=== PATIENT | male | born 1960 | race Caucasian/White ===

== ENCOUNTER 2025-02-05 21:05 | Observation (INO) | payer OTHER ==
[2025-02-05] MEDS: ASPIRIN 81 MG PO STA (21:29)
[2025-02-05 21:35] LABS: Basophils # (A) 0.09 10*3/uL (0.00-0.10); Basophils % (A) 1.1 %; Eosinophils # (A) 0.18 10*3/uL (0.04-0.35); Eosinophils % (A) 2.2 %; HCT 45.5 % (39.6-50.0); HGB 15.6 g/dL (13.0-17.0); Lymphocytes # (A) 2.28 10*3/uL (0.90-5.00); Lymphocytes % (A) 28.1 %; MCH 32.0 pg (27.0-32.0); MCHC 34.3 g/dL (32.0-37.0); MCV 93.2 fL (80.0-97.0); Monocytes # (A) 0.90 10*3/uL (0.20-1.00); Monocytes % (A) 11.1 %; Neutrophils # (A) 4.64 10*3/uL (1.80-7.70); Neutrophils % (A) 57.3 %; Platelet Count 179 10*3/uL (140-440); RBC 4.88 10*6/uL (4.40-5.60); RDW 11.6 % (11.5-14.5); WBC 8.11 10*3/uL (4.50-10.00)
--- NOTE | 2025-02-05 21:36 | ED ---
Chest Pain HPI - General Chief Complaint: Chest Pain Stated Complaint: Chest Pain Time Seen by Provider: 02/05/25 21:11 Source: patient, EMS Mode of arrival: EMS - History of Present Illness Initial Comments: 64-year-old male with hyperlipidemia, daily smoker brought in by EMS for chest pain. Patient reported that he was biking today about an hour and a half ago when he developed chest pressure that was nonradiating, constant, maximum 8 out of 10 intensity with associated shortness of breath, feet numbness and dizziness. Chest pressure was persistent and exacerbated with exertion and EMS was called. Improved with nitro given by and rest. Denied fever, chills, recent illness, exposure to sick contacts, extremity swelling, palpitations, abdominal pain, nausea, vomiting, diaphoresis, focal weakness, recent hospitalization. He reported that he had a similar episode 6 months ago and was seen by urgent care but was cleared and sent home. He had a father that had a he art attack in his 50s. - Related Data Allergies Allergy/AdvReac Type Severity Reaction Status Date / Time No Known Allergies Allergy Verified 02/05/25 21:12 Review of Systems ROS Statement: Those systems with pertinent positive or pertinent negative responses have been documented in the HPI. ROS Other: All systems not noted in ROS Statement are negative. 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 Past Psychological History: Anxiety, Depression Smoking Status: Current every day smoker Past Alcohol Use History: None Reported Past Drug Use History: None Reported - Past Family History Father Family Medical History: Coronary Artery Disease (CAD) Additional Family Medical History / Comment(s): Father had a heart attack in his 50s General Exam - General Exam Comments Initial Comments: Physical examination: Vital signs reviewed General: non toxic, no distress, appears at stated age, on room air Head: atraumatic, normocephalic, symmetric Mouth: no lip lesion, mucus membranes moist Cardiovascular: S1S2 reg, no murmur Lungs: CTA bilateral, no rhonchi, no rales, no accessory muscle use Abdominal: soft, nondistended, nontender to palpation, no guarding Ext: muscle strength 5 out of 5 in all 4 extremities grossly, no gross muscle atrophy, no contractures, positive dorsalis pedis pulse bilateral, no edema Neuro: no gross focal neuro deficits Psych: Alert and oriented x3, appropriate affect and mood Course Vital Signs 02/05/25 02/05/25 02/05/25 21:07 21:12 22:18 Temperature 98.1 F Pulse Rate 88 83 78 Pulse Rate [ Pulse Oximetery ] Respiratory 16 16 16 Rate Blood Pressure 115/75 108/78 104/74 Blood Pressure [Right Arm] O2 Sat by Pulse 97 97 97 Oximetry 02/05/25 02/06/25 23:46 00:12 Temperature 97.9 F Pulse Rate 79 Pulse Rate [ 72 Pulse Oximetery ] Respiratory 18 18 Rate Blood Pressure 123/92 Blood Pressure 124/84 [Right Arm] O2 Sat by Pulse 98 100 Oximetry Chest Pain MDM - MDM Was pt. sent in by a medical professional or institution ([facility], TRADESHOW WORK[employer], urgent care, hospital, or residential...) When possible be specific @ -No Did you speak to anyone other than the patient for history (EMS, parent, family, police, friend...)? What history was obtained from this source @ -No Did you review nursing and triage notes (agree or disagree)? Why? @ -I reviewed and agree with nursing and triage notes Were old charts reviewed (outside hosp., previous admission, EMS record, old EKG, old radiological studies, urgent care reports/EKG's, residential records)? Report findings @ -No old charts were reviewed Differential Diagnosis? @ -Differential Chest Pain: Stable Angina, Unstable Angina, STEMI, NSTEMI Aortic Dissection, Pneumothorax, Musculoskeletal, Esophageal Spasm GERD, Cholecystitis, Pancreatitis, Zoster, this is not meant to be an all-inclusive list. EKG interpreted by me (3pts min.). @ -As above X-rays interpreted by me (1pt min.). @ -No acute cardiopulmonary process CT interpreted by me (1pt min.). @ -None done U/S interpreted by me (1pt. min.). @ -None done What testing was considered but not performed or refused? (CT, X-rays, U/S, labs)? Why? @ -None What meds were considered but not given or refused? Why? @ -None Did you discuss the management of the patient with other professionals (professionals i.e. , PA, TRADESHOW WORKER, lab, RT, psych nurse, pediatric social worker, coffee plantation worker, teacher, department of natural resources officer, supervisor case loading)? Give summary @ -Dr. Hernadez, supervising physician Was smoking cessation discussed for >3mins.? @ -No Was critical care preformed (if so, how long)? @ -No Were there social determinants of health that impacted care today? How? (Homelessness, low income, unemployed, alcoholism, drug addiction, transportation, low edu. Level, literacy, decrease access to med. care, penitentiary, rehab)? @ -[No] Was there de-escalation of care discussed even if they declined (Discuss DNR or withdrawal of care, Hospice)? DNR status @ -No What co-morbidities impacted this encounter? (DM, HTN, Smoking, COPD, CAD, Cancer, CVA, ARF, Chemo, Hep., AIDS, mental health diagnosis, sleep apnea, morbid obesity)? @ -[None] Was patient admitted / discharged? Hospital course, mention meds given and route, prescriptions, significant lab abnormalities, going to OR and other pertinent info. @ -Observation. 64-year-old male with history of daily smoking, hyperlipidemia presenting with chest pressure. Improved with nitro and rest, worse with exertion. Chest pressure still persistent in the ED. Spoke with Dr. Curran and accepted this admission. Undiagnosed new problem with uncertain prognosis? @ -No Drug Therapy requiring intensive monitoring for toxicity (Heparin, Nitro, Insulin, Cardizem)? @ -No Were any procedures done? @ -No Diagnosis/symptom? @ -Default Acute, or Chronic, or Acute on Chronic? @ -Acute Uncomplicated (without systemic symptoms) or Complicated (systemic symptoms)? @ -Uncomplicated Side effects of treatment? @ -No Exacerbation, Progression, or Severe Exacerbation? @ -No Poses a threat to life or bodily function? How? (Chest pain, [place], [place], pneumonia, PE, COPD, DKA, ARF, appy, cholecystitis, CVA, Diverticulitis, Homicidal, Suicidal, threat to staff... and all critical care pts) @ -Yes Disposition Clinical Impression: Chest pain Disposition: ADMITTED IP TO THIS HOSP Condition: Serious Referrals: None,Stated [Primary Care Provider] - 1-2 days Time of Disposition: 21:36
[2025-02-05] MEDS ORDERED: NALOXONE 0.4 MG/ML 1 ML VIAL IV PRN (21:37)
[2025-02-05] MEDS ORDERED: MORPHINE SULFATE 4 MG/ML SYRINGE IV PRN (21:38)
[2025-02-05] MEDS ORDERED: ACETAMINOPHEN TAB 325 MG TAB PO PRN (21:38)
--- NOTE | 2025-02-05 21:47 | XR ---
EXAMINATION TYPE: XR chest 2V DATE OF EXAM: 02/05/2025 9:37 PM COMPARISON: None. CLINICAL INDICATION: Male, 64 years old with history of Chest Pain; [facility] TECHNIQUE: XR chest 2V Frontal and lateral views of the chest. FINDINGS: Lungs/Pleura: There is no evidence of pleural effusion, focal consolidation, or pneumothorax. Pulmonary vascularity: Unremarkable. Heart/mediastinum: Cardiomediastinal silhouette is unremarkable. Musculoskeletal: No acute osseous pathology. Other findings: None IMPRESSION: No acute cardiopulmonary disease/process. [facility], , 02/05/2025 9:44 PM
[2025-02-05 21:56] LABS: INR 1.0 (<1.2); Partial Thromboplastin Time 22.6 sec (22.0-30.0); Prothrombin Time 11.0 sec (10.0-12.5)
[2025-02-05 22:06] LABS: ALT 14 U/L (4-49); AST 22 U/L (17-59); African American GFR (CKD) >90 (>60 ml/min/1.73 sqM); Albumin 4.1 g/dL (3.5-5.0); Alkaline Phosphatase 72 U/L (38-126); Anion Gap 15 mmol/L; Blood Urea Nitrogen 16 mg/dL (9-20); Calcium 9.3 mg/dL (8.4-10.2); Carbon Dioxide 18 mmol/L (22-30); Chloride 108 mmol/L (98-107); Glucose 92 mg/dL (74-99); Magnesium 1.8 mg/dL (1.6-2.3); Non-African American GFR(CKD) >90 (>60 ml/min/1.73 sqM); Potassium 3.9 mmol/L (3.5-5.1); Sodium 141 mmol/L (137-145); Total Protein 6.6 g/dL (6.3-8.2)
--- NOTE | 2025-02-06 02:08 | HP ---
HISTORY AND PHYSICAL HISTORY OF PRESENT ILLNESS: A 64-year-old male came in with chest pain, daily smoker, who was biking, get short of breath, 8/10 in intensity, exacerbated with exertion, nitro helped with pain, he is admitted to rule out DC. Cardiology consult. Echo is pending. ALLERGIES: Negative. REVIEW OF SYSTEMS: Otherwise is negative. MEDICAL HISTORY: History of hypertension, dyslipidemia, hernia repair, and everyday smoker, anxiety, depression. FAMILY HISTORY: Coronary artery disease . PHYSICAL EXAMINATION: VITAL SIGNS: Temp 98.1, pulse 88, respiratory rate 16 to 18, blood pressure 104 to 115 over 70, O2 of 97. CARDIOVASCULAR: S1, S2. LUNGS: Decreased breath sounds x4. GI: Soft. Hematology: Negative Homans. PSYCH: Fair mood and affect . Pupils equal, round, reactive. Respiratory rule out DC. History of COPD. Prognosis is guarded. Please see further orders. MMODL / IJN: [id number] /
[2025-02-06 08:34] LABS: Cholesterol 226.00 mg/dL (0.00-200.00); HDL Cholesterol 35.80 mg/dL (40.00-60.00); LDL Cholesterol,Calculated 167.2 mg/dL (0.0-131.0); Triglycerides 115.00 mg/dL (0.00-149.00); VLDL Calculation 23.00 mg/dL (5.00-40.00)
[2025-02-06] MEDS ORDERED: ALPRAZolam 0.25 MG TAB PO PRN (09:21)
[2025-02-06] MEDS ORDERED: NITROGLYCERIN SL TABS 0.4 MG TAB SUBLINGUAL PRN (09:21)
--- NOTE | 2025-02-06 09:26 | P.CRDCN ---
History of Present Illness Consult date: 02/06/25 History of present illness: HISTORY OF PRESENTING ILLNESS: 64-year-old patient who does not see a sock boarder presented to the hospital because of substernal chest pressure along with feeling of lightheadedness along with numbness in the feet and hand. The symptoms are also associated with shortness of breath. He reported that his symptoms started shortly after he was biking yesterday. He stopped biking and rested for some time which helped to calm his symptoms down. Again as he started walking. He denied any cough, fever, fall. He reported lightheadedness and dizziness however denied any syncopal episodes. He reported similar symptoms 6 months ago for which he went to the urgent care where he was cleared. He did report father's father having [place] in 50s. Does smoke 2 packs/day. Denies any heavy alcohol use, marijuana use drug use. [id number] smoking history Family history of heart disease with father having [place] in mid 50s. ..................... ................................................................................ ......................................... Pertient Vitals: BP 126/83, heart rate 74 Pertient Labs: Hb 15.6, BUN 16, creatinine 0.7, A1c 5.0, LDL 167, EKG: Sinus rhythm, frequent PVCs appears monomorphic, likely RVOT Pertient Imaging: Chest x-ray does not show any signs of pulmonary congestion or consolidation ......... ................................................................................ ..................................................... REVIEW OF SYSTEMS: 14 point review of system is negative except what is mentioned above in HPI. ...................................................................... ........................................................................ PHYSICAL EXAMINATION: Neck: Brisk carotid upstroke, no jugular venous distention. Lungs: Clear to auscultation. Heart: Regular rate and rhythm, S1-S2, , no murmur or rub. Abdomen: Soft nontender, positive bowel sounds. Extremities: No edema, intact distal pulses. Neuro: Alert, oritented, no focal deficits. Detailed neuro exam was not performed. ............................................................................... ............................................................... ASSESSMENT: # Unstable angina # 2 pack/day smoking history. [id number] smoking # Dyslipidemia # Frequent PVCs PLAN: Plan for cardiac catheterization because of crescendo nature of unstable angina. 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 Past Anesthesia/Blood Transfusion Reactions: No Reported Reaction Past Psychological History: Anxiety, Depression Smoking Status: Current every day smoker Past Alcohol Use History: None Reported Past Drug Use History: None Reported - Past Family History Father Family Medical History: Coronary Artery Disease (CAD) Additional Family Medical History / Comment(s): Father had a heart attack in his 50s Medications and Allergies Home Medications Medication Instructions Recorded Confirmed Type QUEtiapine [SEROquel] 200 mg PO HS 02/06/25 02/06/25 History Allergies Allergy/AdvReac Type Severity Reaction Status Date / Time No Known Allergies Allergy Verified 02/05/25 21:12 Physical Exam Vitals: Vital Signs Temp Pulse Pulse Resp BP BP Pulse Ox 02/06/25 07:00 97.7 F 74 16 126/83 98 02/06/25 00:12 97.9 F 72 18 124/84 100 02/05/25 23:46 79 18 123/92 98 02/05/25 22:18 78 16 104/74 97 02/05/25 21:12 83 16 108/78 97 02/05/25 21:07 98.1 F 88 16 115/75 97 Intake and Output 02/05/25 02/06/25 02/06/25 22:59 06:59 14:59 Other: # Voids 1 Weight 90.718 kg 90.718 kg Results 02/05/25 21:30 02/05/25 21:30 Cardiac Enzymes 02/05/25 02/05/25 Range/Units 21:30 21:30 AST 22 (17-59) U/L Troponin I <0.012 (0.000-0.034) ng/mL Coagulation 02/05/25 Range/Units 21:30 PT 11.0 (10.0-12.5) sec APTT 22.6 (22.0-30.0) sec Lipids 02/05/25 Range/Units 21:30 Triglycerides 115.00 (0.00-149.00) mg/dL Cholesterol 226.00 H (0.00-200.00) mg/dL HDL Cholesterol 35.80 L (40.00-60.00) mg/dL Cholesterol/HDL Ratio 6.31 Ratio CBC 02/05/25 Range/Units 21:30 WBC 8.11 (4.50-10.00) 10*3/uL RBC 4.88 (4.40-5.60) 10*6/uL Hgb 15.6 (13.0-17.0) g/dL Hct 45.5 (39.6-50.0) % Plt Count 179 (140-440) 10*3/uL Comprehensive Metabolic Panel 02/05/25 Range/Units 21:30 Sodium 141 (137-145) mmol/L Potassium 3.9 (3.5-5.1) mmol/L Chloride 108 H (98-107) mmol/L Carbon Dioxide 18 L (22-30) mmol/L BUN 16 (9-20) mg/dL Creatinine 0.74 (0.66-1.25) mg/dL Glucose 92 (74-99) mg/dL Calcium 9.3 (8.4-10.2) mg/dL AST 22 (17-59) U/L ALT 14 (4-49) U/L Alkaline Phosphatase 72 (38-126) U/L Total Protein 6.6 (6.3-8.2) g/dL Albumin 4.1 (3.5-5.0) g/dL Current Medications Generic Name Dose Route Start Last Admin Trade Name Freq PRN Reason Stop Dose Admin Acetaminophen 650 mg 02/05/25 21:38 Acetaminophen Tab 325 Mg Tab PO Q6HR PRN Mild Pain or Fever > 100.5 Alprazolam 0.25 mg 02/06/25 09:21 Alprazolam 0.25 Mg Tab PO Q6HR PRN Mild Anxiety Aspirin 81 mg 02/06/25 09:00 Aspirin 81 Mg PO DAILY MONET Heparin Sodium (Porcine) 10, 1,001 mls @ 999 mls/hr 02/07/25 07:00 000 unit/ Sodium Chloride IRRIGATION 02/07/25 23:00 ONCE PRN INTRA-OP Heparin Sodium (Porcine) 2,500 250.5 mls @ 250 mls/hr 02/07/25 07:00 unit/ Sodium Chloride IRRIGATION 02/07/25 23:00 ONCE PRN INTRA-OP Morphine Sulfate 4 mg 02/05/25 21:38 Morphine Sulfate 4 Mg/Ml Syringe IV Q4HR PRN Severe Pain (Scale 7 to 10) Naloxone HCl 0.2 mg 02/05/25 21:37 Naloxone 0.4 Mg/Ml 1 Ml Vial IV Q2M PRN Opioid Reversal Nitroglycerin 0.4 mg 02/06/25 09:21 Nitroglycerin Sl Tabs 0.4 Mg Tab SUBLINGUAL Q5M PRN Chest Pain Intake and Output 02/05/25 02/06/25 02/06/25 22:59 06:59 14:59 Other: # Voids 1 Weight 90.718 kg 90.718 kg 02/05/25 21:30 02/05/25 21:30
[2025-02-06] MEDS: ASPIRIN 81 MG PO SCH (09:34)
[2025-02-06] MEDS: ATORVASTATIN 80 MG TAB PO STA (09:34)
[2025-02-06] MEDS: MIDAZOLAM 2 MG/2 ML VIAL IVP ONE (09:59)
[2025-02-06] MEDS: fentaNYL (PF) 50 MCG/1 ML VIAL IVP ONE ×2 (09:59→10:28)
[2025-02-06] MEDS: LIDOCAINE 2% (PF) 20 MG/ML 5 ML VIAL SQ ONE (09:59)
[2025-02-06] MEDS: VERAPAMIL 2.5 MG/ML 4 ML VIAL INTRAARTER ONE (10:00)
[2025-02-06] MEDS: HEPARIN SODIUM 1,000 UN/ML (10ML VL) IVP ONE ×2 (10:09→10:43)
[2025-02-06] MEDS: NITROGLYCERIN 1000MCG/10ML SYRINGE INTRAARTER ONE (10:10)
[2025-02-06] MEDS: HEPARIN SODIUM,PORCINE 10,000 UNIT in SODIUM CHLORIDE 0.9% 1,000 ML IRRIGATION PRN (10:43)
[2025-02-06] MEDS: SODIUM CHLORIDE 0.9% 1,000 ML IV ONE (10:43)
[2025-02-06] MEDS: HEPARIN SODIUM,PORCINE (1 ML) 2,500 UNIT in SODIUM CHLORIDE 0.9% 250 ML IRRIGATION PRN (10:44)
[2025-02-06] MEDS: IOPAMIDOL-370 100ML BTL INJ ONE (11:00)
[2025-02-06 11:23] VITALS: BMI 25.7
[2025-02-06] MEDS ORDERED: RX INFO: IV CONTRAST WAS GIVEN 1 EACH MISC MISCELLANE PRN (11:55)
--- NOTE | 2025-02-06 11:55 | P.CARDCATH ---
Date of Procedure: 02/06/25 Description of Procedure: DIAGNOSTIC CORONARY ANGIOGRAPHY and LEFT HEART CATH REPORT PROCEDURES PERFORMED: Left heart catheterization Selective coronary angiography Moderate conscious sedation 35 mins Right radial access Ultrasound assisted right common femoral access Right common femoral arteriogram INDICATION: Unstable angina BRIEF HPI: 64-year-old with history of 2-pack per day smoking presented to the hospital because of exertional chest pressure symptoms he was scheduled for a heart catheterization procedure. CONSENT: I have explained the procedural steps of above-mentioned procedures in layman's terms to the patient. I discussed the risks (including but not limited to stroke, emergent vascular or cardiac surgery or ), benefits and alternative therapies for the above-mentioned procedure. I discussed the risks of sedation/analgesia and blood product administration (if indicated). The patient has indicated understanding and acceptance of these risks. Conscious Sedation: Patient's ECG, heart rate, blood pressure, pulse oximetry were monitored throughout the duration of procedure under my direct supervision. 1 mg Versed and 75 mcg Fentanyl were used for induction of moderate conscious sedation. Total duration of moderate concious sedation 35 minutes. PROCEDURAL DETAILS: Patient was prepped and draped in sterile fashion. 1% lidocaine was infiltrated over the right radial artery. Right radial access was obtained via modified seldinger technique. Medications: 5mg of verapamil was administed in the radial sheet. 5500 Units of Heparin was administed once the catheter reached the aortic root Wires and Catheter used: J wire was advanced under fluroscopy to get to aortic root. 5 mongolian JR 4 diagnostic catheter was utilized obtain left ventricular pressure and pressure gradint across aortic valve. 5 Qatari JR4 catheter could not be manipulated to engage the right coronary ostium because of significant tortuosity in the subclavian artery. 5 Qatari Nando catheter. This catheter was manipulated to selectively engage the left coronary ostium. Left coronary angiogram was performed. This catheter was disengaged and was manipulated however could not engage the right coronary ostium. This catheter was exchanged for a 6 Qatari Independence catheter, 5 Qatari AR-2 catheter but this catheter could not engage right coronary ostium because of lack of maneuverability because of tortuosity. Decision was made to proceed with the right common femoral access. Ultrasound was utilized to find the right common femoral bifurcation site. Under ultrasound guidance and using modified Seldinger technique the right common femoral access was gained using micropuncture needle and micro sheath. Right common femoral angiogram was performed using the micro sheath. Once confirming the good arteriotomy site, needed for a 6 Qatari slender glide sheath. The J-wire was advanced and over the wire JR4 6 Qatari catheter was advanced and wire was removed catheter was flushed and catheter was manipulated selective engage the right coronary ostium. Recorded angiograms performed. Angiographic images were reviewed in detail. Decision was made to proceed with IFR assessment of LCx. Catheter and wire were removed. Radial sheet was flushed. The right radial sheath was removed and a TR band was placed. Patent hemostasis was achieved. The patient tolerated the procedure well. Patient was transported back to the post catheterization holding area in stable condition. TECHNICAL DETAILS Total radiation: 140 mGy Total fluro time: 10.5 minutes Total contrast used: Isovue [60 ml] Complications: [none] Estimated Blood loss: less than 15 ml HEMODYNAMICS: Aortic Pressure: 110/60 mmHg. LV pressure: 110/5 mmHg. LVEDP 8 mmHg. There was no significant gradient across the aortic valve. SELECTIVE CORONARY ARTERIOGRAPHY: LEFT MAIN: The left main is short and large caliber vessel. It bifurcates into the LAD and circumflex. Left main appears angiographically normal. LEFT ANTERIOR DESCENDING CORONARY ARTERY: LAD is large caliber reaches up to the apex. Proximal LAD appears angiographically patent. It gives rise to a large diagonal 1 branch which appears angiographically patent. Mid LAD has a eccentric shelf of calcium with 60% stenosis. Mid LAD gives rise to a medium size septal custodial supervisor and a small size diagonal 2. They appear angiographically patent. Distal LAD gives rise to diagonal 3 which is but short vessel appears angiographically patent. Distal LAD appears angiographically patent otherwise. LEFT CIRCUMFLEX CORONARY ARTERY: LCx is nondominant moderate caliber. Proximal LCx has 60%-70% disease just at the bifurcation site of OM1. OM1 is a moderate caliber vessel and its ostium appears to have 40 to 50% disease. Starr 1, 1, 1 fashion. Mid LCx just prior to the bifurcation site of OM 2 has to 80% disease. OM 2 is 1.75 mm vessel. RIGHT CORONARY ARTERY: Dominant vessel. The right coronary artery is a large caliber vessel. It appears angiographically patent with mild mid irregularities. Distally gives rise to PDA and PL branch IMPRESSION: 80% mid LCx 70% proximal LCx, bifurcation disease involving ostium of OM1 50% mid LAD Normal LVEDP PLAN: IFR assessment of LCx and LAD with Dr. Fleming Further recommendations to follow Performing Physician Damon Summers MD, FACC, RPVI Thank you for allowing [facility] to participate in this patient's care. Feel free to reach out in case of any followup questions.
--- NOTE | 2025-02-06 13:24 | P.CN ---
Psychiatric Consult - . Consult date: 02/06/25 Consult:: 02/06/25 13:11 IDENTIFYING DATA: This patient is a 64-year-old male, on disability, living with sister REASON FOR REFERRAL: Psychiatry was consulted for petition by family for psych eval/guardianship HISTORY OF PRESENT ILLNESS: The patient presented to the hospital with chief complaint of chest pain with cardiology consulted who ordered both the cardiac cath and echo. Patient seen and evaluated in his room. He was A&Ox3 only not knowing the date. He was irritable however overall cooperative with the interview. He denied any past medical history but did admit to a past history of anxiety and depression, stating he sees a psychiatrist Dr. Atkins who prescribes the Seroquel. He does feel as though stress and anxiety has increased lately due to the chest pain however he denied any sleep or appetite changes, low energy, anhedonia. He states sleep is well on the Seroquel. He states he has been on this medication for several years. At this time patient denies any suicidal or homicidal ideations, intent or plan. Patient denies any auditory, visual hallucinations and denies any paranoia or delusions. Patients admits to using nicotine daily. PAST PSYCHIATRIC HISTORY: Patient has a history of depression, anxiety. Patient is currently prescribed Seroquel 200 mg at bedtime. Patient reports his most recent hospitalization being 4 months ago. Patient says he sees psychiatrist Dr. Atkins for medication management. He reports 1 suicide attempt last year. PAST MEDICAL HISTORY: Dyslipidemia, hypertension. ALLERGIES: as per EMR. CHEMICAL DEPENDENCY HISTORY: as per HPI. FAMILY PSYCHIATRIC/SUBSTANCE USE HISTORY: Patient states his brother has schizophrenia SOCIAL HISTORY: Patient is single and has no children. He lives with his sister, completed his GED and is currently on SSD. MENTAL STATUS EXAM: General Appearance: Patient appears to be stated age is alert, irritable but largely cooperative. Patient appears to have fair hygiene and grooming wearing hospital gown with poor eye contact. Behavior: Patient is calmly lying in bed without any agitated behavior. Speech: Patient's speech is fluent and nonpressured. Mood/Affect: Patient reports their mood is "in pain", affect is congruent Suicidality/Homicidality: Patient denies having any suicidal or homicidal ideation intent or plan. Perceptions: Patient denies any visual hallucinations and denies any auditory hallucinations Though content/process: There is no evidence of any delusional thought content and thought process is linear and goal-directed. Memory and concentration: AOX3, grossly intact for the purposes of this session. Can spell "WORLD" backwards Judgment and insight: Poor IMPRESSIONS: History of depression/anxiety Nicotine dependence PLAN: -At this time patient DOES NOT meet criteria for inpatient psychiatric admissio n. -Patient DOES have decision making capacity at this time and is able to reason through and communicate/appreciate the risks, benefits and alternatives to treatment. -Would recommend the following medication changes/additions: Resume Seroquel 200 mg at bedtime. Patient to follow-up with his outpatient psychiatrist for further med adjustments. -Conference Director spoke with patient about substance abuse and the harmful effects on medical and mental health, patient verbally understood and agreed. -Communicated plan to patient's nurse -Psychiatry will sign off at this time -Please contact with any questions.
--- NOTE | 2025-02-06 13:54 | P.CARDCATH ---
Description of Procedure: PROCEDURES PERFORMED: Left coronary angiography, iFR LAD/circumflex and OM2 INDICATION: Chest pain with exertion CONSENT:I have discussed the risks, benefits and alternative therapies for the above-mentioned procedure and for both sedation/analgesia as well as necessary blood product administration, if indicated, as they pertain to this patient. The patient has indicated understanding and acceptance of the risks and procedures discussed. PROCEDURE: After the risks, benefits and alternatives of the above mentioned procedure explained in detail with the patient, informed consent was obtained. Patient was taken to the catheterization lab and prepped and draped in usual fashion. A 6-[place] sheath had previously been placed in the right radial artery and right femoral artery. I was asked to perform functional assessment of the LAD and circumflex. Heparin had been given. A 6 [place] CLS 4.0 guide was used to engage the left main. A 0.014 pressure wire was advanced in the left main and normalized. It was then advanced in the mid LAD and RFR was performed and was normal at 0.99. Next the pressure wire was advanced into the circumflex and advanced in the distal circumflex and was normal at 1.0 and then into OM2 it was normal at 0.94. The right radial sheath was removed and a TR band was placed with hemostasis achieved. A 6Fr Angioseal was placed in the right femoral artery and hemostasis was achieved. The patient tolerated the procedure well. Patient was transported back to the post catheterization holding area in stable condition. Conscious Sedation: Patient was monitored under the direct supervision of myself for conscious sedation using Versed and fentanyl for a total duration of 19 minutes HEMODYNAMICS: Aorta: 138/72 SELECTIVE CORONARY ARTERIOGRAPHY: LEFT MAIN: The left main is a large caliber vessel which bifurcates into the LAD and circumflex. There is no significant stenosis. LEFT ANTERIOR DESCENDING CORONARY ARTERY: LAD is a large caliber vessel which wraps around to the apex. There is calcified proximal LAD 30 to 40% stenosis. LEFT CIRCUMFLEX CORONARY ARTERY: Left circumflex is a moderate caliber vessel with a high OM1 branch with 20 to 30% disease at the bifurcation of OM1 and then a more focal 60 to 70% stenosis at the bifurcation of OM 2 and the distal circumflex. RIGHT CORONARY ARTERY: The right coronary artery was not imaged, see separate report FINAL IMPRESSION: 1. CAD as described above 2. Normal RFR (iFR) of the LAD, OM 2 and circumflex PLAN: 1. Aggressive risk factor modification per most recent ACC/AHA guidelines. 2. Follow-up in the office in 1-2 weeks.
[2025-02-06] MEDS: BISOPROLOL 5 MG TAB PO SCH (14:52)
[2025-02-06] MEDS: SODIUM CHLORIDE 0.9% 1,000 ML IV SCH (14:56)
[2025-02-06] MEDS: LORazepam 1 MG/0.5 ML VIAL IV STA (18:19)
--- NOTE | 2025-02-07 01:24 | PN ---
PROGRESS NOTE SUBJECTIVE: Had a heart catheterization that showed about 50% blockage. The patient has been a smoker for many years. OBJECTIVE: VITAL SIGNS: Temperature 98.4, blood pressure 111-120s/80s, O2 95% to 97%, respiratory rate 18. CARDIOVASCULAR: S1, S2. LUNGS: Scattered rhonchi, wheeze. HEMATOLOGY: Negative Homans. PSYCH: Fair mood and affect. ASSESSMENT AND PLAN: The patient has increased thick blood. Hemoglobin is 15.6. Prognosis is guarded. Continue current treatment. Atypical chest pain, COPD exacerbation, acute hypoxemic respiratory failure. Please see further orders. MMODL / IJN: [id number] /
--- NOTE | 2025-02-07 08:18 | CT ---
EXAMINATION TYPE: CT chest wo con DATE OF EXAM: 02/07/2025 7:38 AM COMPARISON: Radiograph 02/13/2025 CLINICAL INDICATION: Male, 64 years old with history of dyspnea; PHH, shortness of breath TECHNIQUE: CT of the chest without IV contrast. Coronal and sagittal reconstructions performed. CT DLP: 412.40 mGycm, Automated exposure control for dose reduction was used. FINDINGS: The heart is upper limits of normal in size without pericardial effusion. 3 vessel coronary artery ca lcifications are present. Borderline ectatic ascending aorta 3.5 cm. Conventional arch vessel branching anatomy. Scattered nonenlarged mediastinal lymph nodes are present. No thoracic lymphadenopathy by CT size cri teria. Borderline caliber main right and left pulmonary arteries up to 2.5 cm may reflect underlying pulmona ry hypertension. Mild bilateral gynecomastia. Moderate diffuse bronchial wall thickening. [id number] emphysematous change. Minimal biapical p leural parenchymal scarring. Some dependent subpleural opacity posterior lung bases probably addition al pleural parenchymal scarring. No consolidation or pleural effusion. Visualized upper abdomen shows left hepatic lobe cyst at 1.6 cm. Bones: Mild degenerative disc disease mid and lower thoracic spine. Degenerative change sternoclavicu lar joints. IMPRESSION: 1. COPD with mild to moderate emphysema. Possible underlying pulmonary arterial hypertension. 2. Bronchial wall thickening could represent a prominent component of chronic bronchitis versus super imposed acute bronchitis. 3. Three-vessel coronary artery calcifications. [facility], , 02/07/2025 8:16 AM
[2025-02-07] MEDS: IPRATROPIUM-ALBUTEROL 3 ML NEB INHALATION SCH (08:24)
[2025-02-07] MEDS: ASPIRIN 81 MG PO SCH (09:05)
[2025-02-07] MEDS ORDERED: OLANZapine 10 MG VIAL IM PRN (14:10)
--- NOTE | 2025-02-07 14:14 | P.PN ---
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 The symptoms are also associated with shortness of breath. He reported that his symptoms started shortly after he was biking yesterday. He stopped biking and rested for some time which helped to calm his symptoms down. Again as he started walking. He denied any cough, fever, fall. He reported lightheadedness and dizziness however denied any syncopal episodes. He reported similar symptoms 6 months ago for which he went to the urgent care where he was cleared. He did report father's father having TN in 50s. Does smoke 2 packs/day. Denies any heavy alcohol use, marijuana use drug use. [id number] smoking history Family history of heart disease with father having TN in mid 50s. ................................................................................ .............................................................. Pertient Vitals: [facility] 126/83, [facility] Labs: Hb 15.6, BUN 16, creatinine 0.7, A1c 5.0, LDL 167, EKG: Sinus rhythm, frequent PVCs appears monomorphic, likely RVOT Pertient Imaging: Chest x-ray does not show any signs of pulmonary congestion or consolidation ......................................................................... ..................................................................... 02/07 Patient seen and examined. Yesterday, patient underwent cardiac catheterization which revealed LAD 30 to 40% stenosis high OM1 branch with 20 to 30% disease at the bifurcation of OM1 and then focal 60 to 70% stenosis at the bifurcation of the OM 2 and the distal circumflex. Normal IFR of the LAD, OM 2 and circumflex. Blood pressure 116/75, heart rate 68, pulse ox 96% on room air. .................. ................................................................................ ............................................ PHYSICAL EXAMINATION: Neck: Brisk carotid upstroke, no jugular venous distention. Lungs: Clear to auscultation. Heart: Regular rate and rhythm, S1-S2, , no murmur or rub. Abdomen: Soft nontender, positive bowel sounds. Extremities: No edema, intact distal pulses. Neuro: Alert, oritented, no focal deficits. Detailed neuro exam was not performed. ........................... ................................................................................ ................................... ASSESSMENT: # Unstable angina # 2 pack/day smoking history. [id number] smoking # Dyslipidemia # Frequent PVCs PLAN: Continue patient on aspirin 81 mg daily, atorvastatin 40 mg daily, bisoprolol 2.5 mg daily. Obtain echocardiogram report If echocardiogram is unremarkable, patient is cleared for discharge from cardiology perspective and will follow-up in the office with Dr. Fleming in 1 to 2 weeks. Nurse practitioner note has been reviewed, I agree with documented findings and plan of care. Patient was seen and examined. Objective - Vital Signs Vital signs: Vital Signs Temp 98 F 02/07/25 07:00 Pulse 72 02/07/25 08:24 Resp 16 02/07/25 07:00 BP 112/76 02/07/25 07:00 Pulse Ox 95 02/07/25 07:00 FiO2 Intake & Output 02/06/25 02/07/25 02/07/25 18:59 06:59 18:59 Intake Total 150 Output Total 400 Balance -250 Weight 90.718 kg Intake: IV 150 Output: Urine 400 Other: # Voids 1 2 # Bowel Movements 1 - Labs CBC & Chem 7: 02/05/25 21:30 02/05/25 21:30 Labs: Abnormal Lab Results - Last 24 Hours (Table) 02/05/25 Range/Units 21:30 Cholesterol 226.00 H (0.00-200.00) mg/dL LDL Cholesterol, Calc 167.2 H (0.0-131.0) mg/dL HDL Cholesterol 35.80 L (40.00-60.00) mg/dL
--- NOTE | 2025-02-07 14:17 | P.PN ---
Progress Note - Text Progress Note Date: 02/07/25 IDENTIFYING DATA: Patient is a 64-year-old male, on disability, living with sister REASON FOR CONSULT: Hallucinations, delusions INTERVAL HISTORY: Patient seen and evaluated. Patient overnight displayed visual hallucinations of seeing his brother. Patient today states he did not recall experiencing hallucinations overnight, denying any currently and not appearing internally preoccupied. He denied any adverse effects to the Seroquel. He denied any SI/HI. He states sleeping well. He states speaking to his sister earlier who is taking care of things with her today. MENTAL STATUS EXAM: General Appearance: Patient appears to be stated age. Patient appears to have fair hygiene and grooming wearing hospital gown with poor eye contact. Behavior: Patient is calmly lying in bed without any agitated behavior. Speech: Speech is fluent and nonpressured Mood/Affect: Mood is "okay" affect is constricted Suicidality/Homicidality: Patient denies any suicidal homicidal ideations Perceptions: There are no perceptual abnormalities Though content/process: There is no evidence of any delusional thoughts Judgment and insight: Poor IMPRESSIONS: History of depression/anxiety Nicotine dependence Psychosis unspecified, rule out delirium versus schizoaffective disorder PLAN: -At this time patient DOES NOT meet criteria for inpatient psychiatric admission. -Patient DOES have decision making capacity at this time and is able to reason through and communicate/appreciate the risks, benefits and alternatives to treatment. -Delirium precautions recommended with patient including - avoiding use of narcotics and BRICKMASON sedatives, limit anticholinergic medications when possible, fr equent re-orientation, minimize use of restraints, open window shades during the day and close them at night -Would recommend the following medication changes/additions: Increase Seroquel to 250 mg at bedtime for psychosis and add Zyprexa 5 mg IM twice daily as needed for acute safety concerns. Patient to have close follow-up with outpatient psychiatrist for further adjustments -Will continue to follow along as needed -Please contact with any questions.
[2025-02-07] MEDS: ATORVASTATIN 40 MG TAB PO SCH (20:28)
[2025-02-07] MEDS: QUEtiapine 100 MG TAB PO SCH (20:29)
--- NOTE | 2025-02-07 21:43 | CA ---
Transthoracic Echo Report Name: Hugo Gao Age: 64 Gender: M : 1960 Exam Date: 02/06/2025 15:06 Exam Location: [facility] Ht (in): 74 Wt (lb): 200 Ordering Physician: Gt Curran MD Attending/Referring Phys: Flooring Installer Akira Meza RDCS Procedure CPT: Indications: Chest Pain Cardiac Hx: Technical Quality: Poor Contrast 1: Total Dose (mL): Contrast 2: Total Dose (mL): MEASUREMENTS (Male / Female) Normal Values 2D ECHO LV Diastolic Diameter PLAX 4.3 cm 4.2 - 5.9 / 3.9 - 5.3 cm LV Systolic Diameter PLAX 3.7 cm IVS Diastolic Thickness 1.2 cm 0.6 - 1.0 / 0.6 - 0.9 cm LVPW Diastolic Thickness 1.3 cm 0.6 - 1.0 / 0.6 - 0.9 cm LV Relative Wall Thickness 0.6 RV Internal Dim ED PLAX 3.4 cm LVOT Diameter 2.0 cm LA Systolic Diameter LX 2.9 cm 3.0 - 4.0 / 2.7 - 3.8 cm LV Diastolic Volume MOD BP 84.4 cm??? 67 - 155 / 56 - 104 cm??? LV Systolic Volume MOD BP 36.7 cm??? 22 - 58 / 19 - 49 cm??? LV Ejection Fraction MOD BP 56.5 % >= 55 % LV Cardiac Index MOD BP 1266.1 cm???/min???m??? LV Diastolic Volume MOD 4C 90.4 cm??? LV Systolic Volume MOD 4C 34.7 cm??? LV Ejection Fraction MOD 4C 61.6 % LV Cardiac Index MOD 4C 1480.4 cm???/min???m??? LV Diastolic Length 4C 7.5 cm LV Systolic Length 4C 6.2 cm LV Diastolic Volume MOD 2C 73.6 cm??? LV Systolic Volume MOD 2C 35.8 cm??? LV Ejection Fraction MOD 2C 51.4 % LV Cardiac Index MOD 2C 1004.9 cm???/min???m??? LV Diastolic Length 2C 7.3 cm LV Systolic Length 2C 6.5 cm LA Volume 53.7 cm??? 18 - 58 / 22 - 52 cm??? LA Volume Index 24.6 cm???/m??? 16 - 28 cm???/m??? M-MODE Aortic Root Diameter MM 3.8 cm LA Systolic Diameter MM 2.9 cm LA Ao Ratio MM 0.8 AV Cusp Separation MM 2.5 cm DOPPLER AV Peak Velocity 117.5 cm/s AV Peak Gradient 5.5 mmHg AV Mean Velocity 83.5 cm/s AV Mean Gradient 3.1 mmHg AV Velocity Time Integral 19.7 cm LVOT Peak Velocity 66.2 cm/s LVOT Peak Gradient 1.8 mmHg LVOT Velocity Time Integral 9.9 cm LVOT Stroke Volume 32.6 cm??? LVOT Stroke Volume Index 15.0 ml/m??? LVOT Cardiac Index 864.4 cm???/min???m??? AV Area Cont Eq vti 1.7 cm??? AV Area Cont Eq pk 1.9 cm??? MV Peak Velocity 64.9 cm/s MV Peak Gradient 1.7 mmHg MV Mean Velocity 39.6 cm/s MV Mean Gradient 0.7 mmHg MV Velocity Time Integral 16.1 cm MV Area PHT 2.1 cm??? Mitral E Point Velocity 34.6 cm/s Mitral A Point Velocity 48.1 cm/s Mitral E to A Ratio 0.7 MV Deceleration Time 362.0 ms TR Peak Velocity 265.4 cm/s TR Peak Gradient 28.2 mmHg FINDINGS Left Ventricle Left ventricular ejection fraction is estimated at 55-60%. Normal LV cavity size and wall thickness. Basal to mid inferolateral wall hypokinesia. Right Ventricle Normal right ventricular size and function. Right Atrium Mild right atrial dilatation. No right atrial thrombus or mass seen. Left Atrium Normal left atrial size. No left atrial thrombus or mass present. Mitral Valve No mitral stenosis. Mild mitral regurgitation. Aortic Valve Trileaflet aortic valve. No aortic stenosis. No aortic regurgitation. Tricuspid Valve No tricuspid stenosis. Trace tricuspid regurgitation. Pulmonic Valve Pulmonic valve not well visualized. Pericardium Normal pericardium. No pericardial or pleural effusion. Aorta Normal size aortic root and proximal ascending aorta. CONCLUSIONS LVEF 55% Normal LV cavity size and wall thickness Basal to mid inferior lateral wall hypokinesia Normal RV size and systolic function Mild mitral regurgitation Previewed by: Dr Damon Summers (Electronically Signed) Final Date: 07 February 2025 21:42
[2025-02-08 02:01] VITALS: RESP 17
--- NOTE | 2025-02-08 10:52 | P.PN ---
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 The symptoms are also associated with shortness of breath. He reported that his symptoms started shortly after he was biking yesterday. He stopped biking and rested for some time which helped to calm his symptoms down. Again as he started walking. He denied any cough, fever, fall. He reported lightheadedness and dizziness however denied any syncopal episodes. He reported similar symptoms 6 months ago for which he went to the urgent care where he was cleared. He did report father's father having CA in 50s. Does smoke 2 packs/day. Denies any heavy alcohol use, marijuana use drug use. [id number] smoking history Family history of heart disease with father having CA in mid 50s. ................................................................................ .............................................................. Pertient Vitals: BP 126/83, [facility] Labs: Hb 15.6, BUN 16, creatinine 0.7, A1c 5.0, LDL 167, EKG: Sinus rhythm, frequent PVCs appears monomorphic, likely RVOT Pertient Imaging: Chest x-ray does not show any signs of pulmonary congestion or consolidation ......................................................................... ..................................................................... 02/07 Patient seen and examined. Yesterday, patient underwent cardiac catheterization which revealed LAD 30 to 40% stenosis high OM1 branch with 20 to 30% disease at the bifurcation of OM1 and then focal 60 to 70% stenosis at the bifurcation of the OM 2 and the distal circumflex. Normal IFR of the LAD, OM 2 and circumflex. Blood pressure 116/75, heart rate 68, pulse ox 96% on room air. 02/08 Patient seen and examined. No new concerns from the patient. He is waiting for discharge. Blood pressure 101/64, heart rate 77, pulse ox 96% on room air. No repeat blood work. Echocardiogram reveals EF of 55%, mild mitral regurgitation. ...................................................................... ........................................................................ PHYSICAL EXAMINATION: Neck: Brisk carotid upstroke, no jugular venous distention. Lungs: Clear to auscultation. Heart: Regular rate and rhythm, S1-S2, , no murmur or rub. Abdomen: Soft nontender, positive bowel sounds. Extremities: No edema, intact distal pulses. Neuro: Alert, oritented, no focal deficits. Detailed neuro exam was not performed. ............................................................................... ............................................................... ASSESSMENT: # Unstable angina # 2 pack/day smoking history. [id number] smoking # Dyslipidemia # Frequent PVCs PLAN: Continue patient on aspirin 81 mg daily, atorvastatin 40 mg daily, bisoprolol 2.5 mg daily. Patient is cleared for discharge from cardiology perspective and will follow-up in the office with Dr. Summers in 1 to 2 weeks. Nurse practitioner note has been reviewed, I agree with documented findings and plan of care. Patient was seen and examined. Objective - Vital Signs Vital signs: Vital Signs Temp 98.3 F 02/08/25 07:18 Pulse 77 02/08/25 07:18 Resp 17 02/08/25 07:18 BP 101/64 02/08/25 07:18 Pulse Ox 96 02/08/25 07:18 FiO2 Intake & Output 02/07/25 02/08/25 02/08/25 18:59 06:59 18:59 Other: # Voids 1 - Labs CBC & Chem 7: 02/05/25 21:30 02/05/25 21:30
[2025-02-08 15:22] VITALS: BP 104/73; PULSE 80; TEMP 97.6
--- NOTE | 2025-02-08 16:52 | PN ---
PROGRESS NOTE SUBJECTIVE: A 64-year-old white male, continues on current treatment, has breathing treatments for COPD ordered. He is given some psych medications for possible visual hallucinations at night. Prognosis is guarded. Ambulate as tolerated. Also, go to rehab center or go home in the next 24-48 hours. Prognosis guarded. MMCOY / USHAN: [id number] /
== END 2025-02-08 15:30 | disposition home or self-care (01) ==
LOC: EC 21:05 → 6NMEDSUR 21:37
PROVIDERS: ADMIT Family Medicine; ATTEND Family Medicine
DX: I25.110 Atherosclerotic heart disease of native coronary artery with unstable angina pectoris (principal); E78.5 Hyperlipidemia, unspecified; I49.3 Ventricular premature depolarization; I10 Essential (primary) hypertension; F32.A Depression, unspecified; F41.9 Anxiety disorder, unspecified; F17.200 Nicotine dependence, unspecified, uncomplicated; Z79.899 Other long term (current) drug therapy; Z82.49 Family history of ischemic heart disease and other diseases of the circulatory system; J44.1 Chronic obstructive pulmonary disease with (acute) exacerbation; J96.01 Acute respiratory failure with hypoxia; F22 Delusional disorders
CPT/HCPCS: 96374; 99285; 36415; 94640 ×3; 94760; 93005; 93306; 93458; 93799; 80061; 80053; 83735; 84484; 85025; 85610; 85730; 83036; 71046; 71250; G0378 ×4; J2250; J2060; J1644 ×3; Q9967; J2003; J3010; J2305